=== PATIENT | male | born 1980 | race African-American/Black ===

== ENCOUNTER 2018-11-11 19:14 | Emergency (ER) | payer OTHER ==
[~2018-11-11] VITALS: Ht 167.6 cm; Wt 94.3 kg
[2018-11-11 19:44] LABS: ABSOLUTE NEUTROPHILS 7.4 thou/uL (1.4-8.2); BASOPHILS 0.9 % (0.0-2.0); EOSINOPHILS 0.3 % (0.0-3.0); HEMATOCRIT 47.6 % (42.0-52.0); HEMOGLOBIN 16.8 gm/dL (14.0-18.0); LYMPHOCYTES 26.9 % (24.0-44.0); MCH 29.3 pg (26.0-34.0); MCHC 35.3 g/dL (28.0-37.0); PLATELET COUNT 290 thou/uL (150-400); POLYS 60.9 % (36.0-66.0); RBC 5.74 mil/uL (4.50-6.00); RDW 13.8 % (10.5-14.5); WBC 12.2 thou/uL (4.0-11.0)
[2018-11-11 19:59] LABS: CALCIUM 9.2 mg/dL (8.5-10.1); CREATININE 1.2 mg/dL (0.7-1.3); POTASSIUM 3.7 mmol/L (3.5-5.1)
[2018-11-11 20:04] LABS: ALBUMIN 4.4 g/dL (3.4-5.0); TOTAL BILIRUBIN 0.9 mg/dL (<0.1-1.0); TOTAL PROTEIN 9.7 g/dL (6.4-8.2)
[2018-11-11 20:50] LABS: URINE CLARITY CLEAR; URINE COLOR YELLOW
[2018-11-11 20:51] LABS: URINE BILIRUBIN NEGATIVE (Negative); URINE BLOOD NEGATIVE (Negative); URINE GLUCOSE-RANDOM* NEGATIVE (Negative); URINE KETONES NEGATIVE (Negative); URINE LEUKOCYTES NEGATIVE (Negative); URINE NITRITE NEGATIVE (Negative); URINE PROTEIN (DIPSTICK) NEGATIVE (Negative); URINE UROBILINOGEN 0.2 E.U./dl (0.2-1.0)
[2018-11-11] MEDS ORDERED: FLAGYL500 M1 PO (21:09)
[2018-11-11] MEDS ORDERED: CIPRO500 MG PO (21:09)
[2018-11-11] MEDS ORDERED: ZOFRAN ODT4 MG PO (21:09)
[2018-11-11] MEDS ORDERED: NORCO 5-325 TA1 EACH PO (21:13)
[2018-11-11 21:26] VITALS: BP 144/94
== END 2018-11-11 21:28 | disposition home or self-care (01) ==
LOC: ER 19:14
PROVIDERS: Physician Assistant
DX: K57.92 Diverticulitis of intestine, part unspecified, without perforation or abscess without bleeding (principal); K80.20 Calculus of gallbladder without cholecystitis without obstruction